=== PATIENT | male | born 1960 ===

== ENCOUNTER 2020-05-30 10:29 | Outpatient (REF) | payer BC, SELFPAY ==
[2020-06-03 03:51] LABS: SARS-CoV-2 RNA Undetected (Undetected); SARS-CoV-2 Specimen Source Nasal
== END 2020-05-30 10:49 ==
LOC: NCHCN 10:29
PROVIDERS: Visit Provider Internal Medicine
DX: Z20.828 Contact with and (suspected) exposure to other viral communicable diseases (principal)
CPT/HCPCS: U0003

== ENCOUNTER 2020-08-31 13:45 | Outpatient (REF) | payer BC, SELFPAY ==
[2020-09-01 15:30] LABS: COVID-19 RT-PCR UVMMC Result Negative (Negative)
== END 2020-08-31 13:46 | disposition home or self-care (01) ==
LOC: NCHCN 13:45
PROVIDERS: PCP Internal Medicine; Visit Provider Internal Medicine
DX: Z20.822 Contact with and (suspected) exposure to COVID-19 (principal)
CPT/HCPCS: U0003

== ENCOUNTER 2024-05-14 11:18 | Outpatient (CLI) | payer BC, SELFPAY ==
[2024-05-31 13:39] LABS: Misc Referral (MAYO) See Comments
== END 2024-05-14 11:19 | disposition home or self-care (01) ==
LOC: LBO 11:18
PROVIDERS: PCP Internal Medicine; Visit Provider Family Medicine
DX: T65.891A Toxic effect of other specified substances, accidental (unintentional), initial encounter (principal)
CPT/HCPCS: 36415; 82441